=== PATIENT | male | born 1955 | race Caucasian/White ===

== ENCOUNTER 2022-07-15 09:25 | Emergency (ER) | payer MEDICARE ==
[2022-07-15 09:39] VITALS: BP 142/75; PULSE 46; RESP 18; TEMP 98
[2022-07-15] MEDS ORDERED: FLUORESCEIN STRIPS 1 MG STRIP LEFT EYE ONE (09:48)
[2022-07-15] MEDS ORDERED: PROPARACAINE 0.5% OPHTH DROPS 15 ML BTL LEFT EYE STA (09:49)
--- NOTE | 2022-07-15 10:06 | ED ---
General Adult HPI - General Chief complaint: Eye Problems Stated complaint: L eye issue Time Seen by Provider: 07/15/22 09:35 Source: patient, RN notes reviewed, old records reviewed Mode of arrival: ambulatory Limitations: no limitations - History of Present Illness Initial comments: This is a 67-year-old male who presents emergency Department complaining of redness and itching to his left eye. Patient states he has no visual disturbance he states he has normal acuity out of that eye. Patient denies to me I pain I asked him on 3 occasions and he states he has no pain at all. Patient wondered if it was not from getting something in his eye yesterday because S1 the itching began. Patient states she rubbed her quite hard yesterday he woke up this morning and his eye was extremely red and worse and it was yesterday. Patient states she's not uncomfortable - Related Data Previous Rx's Medication Instructions Recorded Cephalexin [Keflex] 500 mg PO Q6HR 10 Days cap 04/17/15 Allergies Allergy/AdvReac Type Severity Reaction Status Date / Time No Known Allergies Allergy Verified 07/15/22 09:39 Review of Systems ROS Statement: Those systems with pertinent positive or pertinent negative responses have been documented in the HPI. ROS Other: All systems not noted in ROS Statement are negative. Past Medical History Past Medical History: Hyperlipidemia, Hypertension, Thyroid Disorder Additional Past Medical History / Comment(s): gout, History of Any Multi-Drug Resistant Organisms: None Reported Past Surgical History: No Surgical Hx Reported Past Anesthesia/Blood Transfusion Reactions: No Reported Reaction Additional Past Anesthesia/Blood Transfusion Reaction / Comment(s): never has had general anesthesia Past Psychological History: No Psychological Hx Reported Smoking Status: Never smoker Past Alcohol Use History: Occasional Past Drug Use History: Marijuana - Past Family History Mother Family Medical History: Cancer Additional Family Medical History / Comment(s): ovarian-still living at age 87 Father Family Medical History: Congestive Heart Failure (CHF) Additional Family Medical History / Comment(s): at age 87 General Exam - General Exam Comments Initial Comments: GENERAL Patient is well-developed and well-nourished. Patient is in mild distress. EYES Pupils are equal and reactive. Patient's conjunctiva is very injected. I used fluorescein and proparacaine eye also inverted the eyelid I saw no foreign bodies and no abrasion. I used a Ranulfo-Pen and got a measurement of 15 SKIN Unremarkable NEURO The patient is alert and oriented 3 PYSCH Patient has normal interpersonal interactions. MUSCULOSKELETAL All 4 extremities and full range of motion Limitations: no limitations Course Vital Signs 07/15/22 09:34 Temperature 98.0 F Pulse Rate 46 L Respiratory 18 Rate Blood Pressure 142/75 O2 Sat by Pulse 99 Oximetry Medical Decision Making - Medical Decision Making Was pt. sent in by a medical professional or institution (, [facility], [employer], urgent care, hospital, or retirement...) When possible be specific @ -Patient was sent in by urgent care Did you speak to anyone other than the patient for history (EMS, parent, family, police, friend...)? What history was obtained from this source @ -No Did you review nursing and triage notes (agree or disagree)? Why? @ -I reviewed and agree with nursing and triage notes Were old charts reviewed (outside hosp., previous admission, EMS record, old EKG, old radiological studies, urgent care reports/EKG's, retirement records)? Report findings @ -No old charts were reviewed Differential Diagnosis (chest pain, altered mental status, abdominal pain women, abdominal pain men, vaginal bleeding, weakness, fever, dyspnea, syncope, headache, dizziness, GI bleed, back pain, seizure, CVA, palpatations, mental health, musculoskeletal)? @ -Conjunctivitis, foreign body, abrasion cornea, corneal ulceration, glaucoma this is not a nonocclusive last EKG interpreted by me (3pts min.). @ -As above X-rays interpreted by me (1pt min.). @ -None done CT interpreted by me (1pt min.). @ -None done U/S interpreted by me (1pt. min.). @ -None done What testing was considered but not performed or refused? (CT, X-rays, U/S, labs)? Why? @ -None What meds were considered but not given or refused? Why? @ -None Did you discuss the management of the patient with other professionals (professionals i.e. [facility] Mcfarland, [employer], lab, RT, psych nurse, social media community manager, inside sales coordinator, teacher, professional security officer, watch caser)? Give summary @ -No Was smoking cessation discussed for >3mins.? @ -No Was critical care preformed (if so, how long)? @ -No Were there social determinants of health that impacted care today? How? (Homelessness, low income, unemployed, alcoholism, drug addiction, transportation, low edu. Level, literacy, decrease access to med. care, penitentiary, rehab)? @ -No Was there de-escalation of care discussed even if they declined (Discuss DNR or withdrawal of care, Hospice)? DNR status @ -No What co-morbidities impacted this encounter? (DM, HTN, Smoking, COPD, CAD, Cancer, CVA, ARF, Chemo, Hep., AIDS, mental health diagnosis, sleep apnea, morbid obesity)? @ -None Was patient admitted / discharged? Hospital course, mention meds given and route, prescriptions, significant lab abnormalities, going to OR and other pertinent info. @ -She had normal visual acuity in both eyes. Patient had a 15 on the Ranulfo-Pen measurements for the left eye. I did a fluorescein staining and Wood's lamp examination as well as flipping the eyelids and saw no foreign bodies and no abrasion Undiagnosed new problem with uncertain prognosis? @ -No Drug Therapy requiring intensive monitoring for toxicity (Heparin, Nitro, Insulin, Cardizem)? @ -No Were any procedures done? @ -No Diagnosis/symptom? @ -Conjunctivitis Acute, or Chronic, or Acute on Chronic? @ -Acute Uncomplicated (without systemic symptoms) or Complicated (systemic symptoms)? @ -Complicated Side effects of treatment? @ -No Exacerbation, Progression, or Severe Exacerbation? @ -No Poses a threat to life or bodily function? How? (Chest pain, [place], [place], pneumonia, PE, COPD, DKA, ARF, appy, cholecystitis, CVA, Diverticulitis, Homicidal, Suicidal, threat to staff... and all critical care pts) @ -No Disposition Clinical Impression: Bacterial conjunctivitis Disposition: HOME SELF-CARE Instructions (If sedation given, give patient instructions): Conjunctivitis (ED) Additional Instructions: Use tobramycin as prescribed. Patient should follow-up with ophthalmology if symptoms do not improve or if they worsen Is patient prescribed a controlled substance at d/c from ED?: No Referrals: Jean-Pierre Mills MD [Primary Care Provider] - 1-2 days Time of Disposition: 10:20
[2022-07-15] MEDS ORDERED: TOBRAMYCIN 0.3% OPHTH DROPS 5 ML BTL LEFT EYE SCH (10:30)
== END 2022-07-15 10:36 | disposition home or self-care (01) ==
LOC: EC 09:25
DX: H10.89 Other conjunctivitis (principal); I10 Essential (primary) hypertension; F12.90 Cannabis use, unspecified, uncomplicated
CPT/HCPCS: 99283

== ENCOUNTER → 2022-12-28 | Outpatient (CLI) | payer MEDICARE ==
--- NOTE | 2022-12-28 16:35 | US ---
EXAMINATION TYPE: US kidneys/renal and bladder DATE OF EXAM: 12/28/2022 COMPARISON: NONE CLINICAL INDICATION: Male, 67 years old with history of R94.4 ABNORMAL RESULTS OF KIDNEY FUNCTION JOHN DIES; abn labs, no symptoms EXAM MEASUREMENTS: Right Kidney: 8.6 x 3.9 x 5.7 cm Left Kidney: 9.1 x 3.4 x 5.1 cm Right Kidney: Smaller in size, no hydronephrosis or masses seen Left Kidney: No hydronephrosis or masses seen Bladder: wnl Bilateral Jets seen: left IMPRESSION: 1. No acute ultrasound abnormality bilateral kidneys
== END | disposition home or self-care (01) ==
LOC: RADUSWWP 16:00
PROVIDERS: ATTEND Internal Medicine
DX: R94.4 Abnormal results of kidney function studies (principal)
CPT/HCPCS: 76770